=== PATIENT | female | born 1950 | race Caucasian/White ===

== ENCOUNTER 2022-10-01 14:56 | Outpatient (RCR) | payer MEDICARE, BC ==
[~2022-10-01 14:56] MED LIST: CONCERTA PO; HYDR-34 PO; LOSA25TA5 PO; SERT100T PO
== END 2022-10-02 | disposition home or self-care (01) ==
PROVIDERS: ATTEND Orthopaedic Surgery
DX: M54.41 Lumbago with sciatica, right side (principal); G89.29 Other chronic pain; M25.551 Pain in right hip

== ENCOUNTER 2022-10-29 13:51 | Outpatient (RCR) | payer MEDICARE, BC | END 2022-11-02 | disposition home or self-care (01) | PROVIDERS: ATTEND Orthopaedic Surgery | DX: M54.41 Lumbago with sciatica, right side (principal); G89.29 Other chronic pain; M25.551 Pain in right hip; I10 Essential (primary) hypertension ==

== ENCOUNTER 2022-11-05 15:00 | Outpatient (RCR) | payer MEDICARE, BC | END 2022-12-01 16:45 | disposition home or self-care (01) | PROVIDERS: ATTEND Orthopaedic Surgery | DX: M54.41 Lumbago with sciatica, right side (principal); G89.29 Other chronic pain; M25.551 Pain in right hip; I10 Essential (primary) hypertension ==